=== PATIENT | male | born 1990 | race Caucasian/White ===

== ENCOUNTER → 2018-03-19 | Outpatient (CLI) | payer SELFPAY | LOC: M OUTALCOH 07:50 | DX: F12.10 Cannabis abuse, uncomplicated (principal) ==

== ENCOUNTER 2018-04-25 16:00 | Outpatient (RCR) | payer SELFPAY | END 2018-05-11 | LOC: M OUTALCOH 16:00 | DX: F12.10 Cannabis abuse, uncomplicated (principal); F17.200 Nicotine dependence, unspecified, uncomplicated ==

== ENCOUNTER → 2018-07-18 | Outpatient (CLI) | payer SELFPAY | LOC: M OUTALCOH 08:22 | DX: Z03.89 Encounter for observation for other suspected diseases and conditions ruled out (principal) ==

== ENCOUNTER 2018-08-01 10:00 | Outpatient (RCR) | payer SELFPAY ==
[~2018-08-01 10:00] MED LIST: AUGM875T28 PO; IBUP-1114 PO; NYQU1LIQ PO; OXYC1TAB23 PO
== END 2018-08-11 ==
LOC: M OUTALCOH 10:00
PROVIDERS: ATTEND Psychiatry & Neurology Psychiatry
DX: F17.200 Nicotine dependence, unspecified, uncomplicated (principal)

== ENCOUNTER 2018-12-07 10:26 | Emergency (ER) | payer SELFPAY ==
[~2018-12-07] VITALS: Ht 193 cm; Wt 100.0 kg
[2018-12-07] MEDS ORDERED: IBUP80TA PO (10:33)
[2018-12-07] MEDS ORDERED: VALI5TAB PO (10:33)
[2018-12-07] MEDS ORDERED: PRED20TA PO (10:33)
[2018-12-07] MEDS ORDERED: NORC1TAB7 PO (11:55)
[2018-12-07 12:00] VITALS: BP 121/72
[2018-12-07] MEDS ORDERED: NORCO, ANEXSIA 5/325MG TABLET (HYDROcodone/ACETAMINOPHEN) PO ONE (12:00)
== END 2018-12-07 12:05 | disposition home or self-care (01) ==
LOC: M ED 10:26
DX: M54.17 Radiculopathy, lumbosacral region (principal); M54.31 Sciatica, right side

== ENCOUNTER 2021-05-23 19:17 | Emergency (ER) | payer SELFPAY ==
[~2021-05-23] VITALS: Ht 193 cm; Wt 90.7 kg
[~2021-05-23 19:17] MED LIST changes: +IBUP80TA PO; +NORC1TAB7 PO; +PRED20TA PO; +VALI5TAB PO
[2021-05-23 19:18] VITALS: BP 139/79
== END 2021-05-23 20:52 | disposition left against medical advice (07) ==
LOC: M ED 19:17
DX: Z53.21 Procedure and treatment not carried out due to patient leaving prior to being seen by health care provider (principal)